=== PATIENT | female | born 1960 | race Two or more races ===

== ENCOUNTER 2025-05-24 12:15 | Inpatient (IN) | payer OTHER ==
[~2025-05-24] VITALS: Wt 60.3 kg
[2025-05-24] MEDS ORDERED: FOSAMAX70 MG PO (14:35)
[2025-05-24] MEDS ORDERED: ZESTRIL2.5 MG PO (14:35)
[2025-05-24] MEDS ORDERED: LIPITOR20 MG PO (14:36)
[2025-05-24] MEDS ORDERED: FERROUS SULFAT325 M2 PO (14:36)
[2025-05-24] MEDS ORDERED: VITAMIN D3 (14:37)
[2025-05-30] MEDS ORDERED: BUPIVACAINE HCL/MPF 0.5% 30ML VIAL ONE (07:07)
[2025-05-30] MEDS ORDERED: LIDOCAINE HCL 1%/EPINEPHRINE 20ML VIAL IJ ONE (07:08)
[2025-05-30] MEDS ORDERED: CEFTRIAXONE SODIUM 2,000 MG VIAL ONE (07:31)
[2025-05-30] MEDS ORDERED: METRONIDAZOLE/SODIUM CHLORIDE 500 MG/100 ML PIGGYBACK IV ONE (07:31)
[2025-05-30] MEDS ORDERED: DEXTROSE 50 % IN WATER 0.5 G/ML DISP.SYRIN IV PRN (09:30)
[2025-05-30] MEDS ORDERED: 0.9 % SODIUM CHLORIDE 1,000 ML IV SCH (09:30)
[2025-05-30] MEDS ORDERED: MORPHINE SULFATE 4 MG/ML CARTRIDGE IV PRN (09:30)
[2025-05-30] MEDS ORDERED: ONDANSETRON HCL 2 MG/ML VIAL IV PRN (09:30)
[2025-05-30] MEDS ORDERED: OxyCODONE HCL 5 MG TABLET (ROXICODONE) PO PRN (09:30)
[2025-05-30 11:42] LABS: BASO % 0.3 % (0.1-1.2); EOS # 0.16 (0.04-0.54); EOS % 1.1 % (0.7-7.0); LYMPH # 1.13 (1.18-3.74); LYMPH % 7.7 % (19.3-53.1); MEAN PLATELET VOLUME 10.20 fl (9.4-12.4); MONO # 0.83 (0.24-0.82); MONO % 5.6 % (4.7-12.5); NEUT # 12.51 (1.56-6.13); NEUT % 85.0 % (34.0-71.1); RED CELL DISTRIBUTION WIDTH 14.5 % (11.6-14.4)
[2025-05-30 12:04] LABS: BUN CREA RATIO 22.0 (7.0-25.0); CREATININE SERUM 0.46 mg/dL (0.55-1.02); GFR 136.33; GLUCOSE FASTING 149.0 mg/dL (65-100); OSMOLALITY SERUM 285.0 MOSM/KG (275-295)
[2025-05-30] MEDS ORDERED: ENALAPRILAT DIHYDRATE 1.25 MG/ML VIAL IV PRN (12:15)
[2025-05-30] MEDS ORDERED: HYOSCYAMINE SULFATE 0.125 MG TAB.SUBL SL SCH (13:00)
[2025-05-30] MEDS ORDERED: ACETAMINOPHEN 500 MG GEL..CAP PO SCH (14:00)
[2025-05-30 16:01] VITALS: BP 118/67; O2SAT 100
[2025-05-30] MEDS ORDERED: GABAPENTIN 300 MG CAPSULE PO SCH (17:00)
[2025-05-30] MEDS ORDERED: METRONIDAZOLE/SODIUM CHLORIDE 500 MG/100 ML PIGGYBACK IV SCH (17:00)
[2025-05-30] MEDS ORDERED: CELECOXIB 200 MG CAPSULE PO SCH (21:00)
[2025-05-30] MEDS ORDERED: FAMOTIDINE/PF 20 MG/2 ML VIAL IV PUSH SCH (21:00)
[2025-05-31 00:25] VITALS: BP 107/65; O2SAT 95
[2025-05-31 06:45] LABS: BASO % 0.1 % (0.1-1.2); EOS # 0.02 (0.04-0.54); EOS % 0.2 % (0.7-7.0); LYMPH # 1.22 (1.18-3.74); LYMPH % 11.2 % (19.3-53.1); MEAN PLATELET VOLUME 9.90 fl (9.4-12.4); MONO # 1.31 (0.24-0.82); MONO % 12.0 % (4.7-12.5); NEUT # 8.33 (1.56-6.13); NEUT % 76.3 % (34.0-71.1); RED CELL DISTRIBUTION WIDTH 14.1 % (11.6-14.4)
[2025-05-31 07:05] LABS: BUN CREA RATIO 16.0 (7.0-25.0); CREATININE SERUM 0.5 mg/dL (0.55-1.02); GFR 123.82; GLUCOSE FASTING 102.0 mg/dL (65-100); OSMOLALITY SERUM 278.0 MOSM/KG (275-295)
[2025-05-31 08:34] VITALS: BP 110/64; O2SAT 96
[2025-05-31] MEDS ORDERED: LISINOPRIL 2.5 MG TABLET PO SCH (09:00)
[2025-05-31 15:30] VITALS: BP 101/65; O2SAT 98
[2025-05-31] MEDS ORDERED: ATORVASTATIN CALCIUM 20 MG TABLET PO SCH (17:00)
[2025-05-31] MEDS ORDERED: ENOXAPARIN SODIUM 40 MG/0.4 ML SYRINGE SUBCUTANEO SCH (17:00)
[2025-06-01 01:28] VITALS: BP 118/76; O2SAT 97
[2025-06-01 06:30] LABS: BASO % 0.3 % (0.1-1.2); EOS # 0.16 (0.04-0.54); EOS % 1.5 % (0.7-7.0); LYMPH # 0.78 (1.18-3.74); LYMPH % 7.2 % (19.3-53.1); MEAN PLATELET VOLUME 10.50 fl (9.4-12.4); MONO # 0.77 (0.24-0.82); MONO % 7.1 % (4.7-12.5); NEUT # 9.00 (1.56-6.13); NEUT % 83.4 % (34.0-71.1); RED CELL DISTRIBUTION WIDTH 14.7 % (11.6-14.4)
[2025-06-01 07:06] LABS: BUN CREA RATIO 26.0 (7.0-25.0); CREATININE SERUM 0.42 mg/dL (0.55-1.02); GFR 151.42; GLUCOSE FASTING 99.0 mg/dL (65-100); OSMOLALITY SERUM 283.0 MOSM/KG (275-295)
[2025-06-01] MEDS ORDERED: ENOXAPARIN SODIUM 40 MG/0.4 ML SYRINGE SUBCUTANEO SCH (09:00)
[2025-06-01 09:09] VITALS: BP 135/74; O2SAT 97
[2025-06-01] MEDS ORDERED: POTASSIUM CHLORIDE 20MEQ/100ML H2O PB IV NR (10:15)
[2025-06-01 15:05] VITALS: BP 112/69; O2SAT 96
[2025-06-01] MEDS ORDERED: POTASSIUM PHOS,M-BASIC-D-BASIC 15 MM in 0.9 % SODIUM CHLORIDE 250 ML IV NR (17:00)
[2025-06-02 01:51] VITALS: BP 108/70; O2SAT 100
[2025-06-02 06:36] LABS: BASO % 0.5 % (0.1-1.2); EOS # 0.56 (0.04-0.54); EOS % 7.3 % (0.7-7.0); LYMPH # 1.34 (1.18-3.74); LYMPH % 17.5 % (19.3-53.1); MEAN PLATELET VOLUME 10.50 fl (9.4-12.4); MONO # 0.62 (0.24-0.82); MONO % 8.1 % (4.7-12.5); NEUT # 5.08 (1.56-6.13); NEUT % 66.5 % (34.0-71.1); RED CELL DISTRIBUTION WIDTH 14.6 % (11.6-14.4)
[2025-06-02 06:55] LABS: BUN CREA RATIO 27.0 (7.0-25.0); CREATININE SERUM 0.3 mg/dL (0.55-1.02); GFR 223.26; GLUCOSE FASTING 84.0 mg/dL (65-100); OSMOLALITY SERUM 284.0 MOSM/KG (275-295)
[2025-06-02 08:47] VITALS: BP 126/74; O2SAT 98
[2025-06-02] MEDS ORDERED: POTASSIUM PHOS,M-BASIC-D-BASIC 3 MM/ML VIAL IV NR (12:00)
[2025-06-02 16:00] VITALS: BP 125/58; O2SAT 95
[2025-06-03 00:37] VITALS: BP 138/75; O2SAT 99
[2025-06-03] MEDS ORDERED: PEPCID AC20 MG PO (07:47)
[2025-06-03] MEDS ORDERED: HYOSCYAMINE0.125 M1 SL (07:47)
[2025-06-03] MEDS ORDERED: DICY20TA PO (07:47)
[2025-06-03 08:32] VITALS: BP 138/84; O2SAT 98
== END 2025-06-03 13:44 | disposition home or self-care (01) | DRG 331 ==
LOC: O/R 05-30 11:00 → SURG 05-30 11:48
PROVIDERS: Internal Medicine Geriatric Medicine; ADMIT Surgery; ATTEND Surgery
PROC: 07BB4ZZ Excision of Mesenteric Lymphatic, Percutaneous Endoscopic Approach (ICD-10-PCS; 2025-05-30)
PROC: 0DTF4ZZ Resection of Right Large Intestine, Percutaneous Endoscopic Approach (ICD-10-PCS; principal; 2025-05-30 15:05)
DX: C18.3 Malignant neoplasm of hepatic flexure (principal); R19.4 Change in bowel habit; R14.0 Abdominal distension (gaseous); R59.0 Localized enlarged lymph nodes

== ENCOUNTER 2025-07-18 09:00 | Day surgery (SDC) | payer OTHER ==
[2025-07-12 11:13] LABS: URINE APPEARANCE Clear; URINE BILIRRUBIN Negative (NEGATIVE); URINE BLOOD Negative; URINE COLOR Yellow; URINE GLUCOSE Negative (NEGATIVE); URINE KETONE Negative (NEGATIVE); URINE LEUKOCYTE Small; URINE NITRATE Negative; URINE PROTEIN Negative (NEGATIVE); URINE UROBILINOGEN 0.2 E.U./dl
[2025-07-12 11:13] LABS: BASO % 0.6 % (0.1-1.2); EOS # 0.38 (0.04-0.54); EOS % 5.3 % (0.7-7.0); LYMPH # 1.83 (1.18-3.74); LYMPH % 25.3 % (19.3-53.1); MEAN PLATELET VOLUME 9.90 fl (9.4-12.4); MONO # 0.55 (0.24-0.82); MONO % 7.6 % (4.7-12.5); NEUT # 4.42 (1.56-6.13); NEUT % 61.1 % (34.0-71.1); RED CELL DISTRIBUTION WIDTH 14.6 % (11.6-14.4)
[2025-07-12 11:17] LABS: URINE BACTERIA 137.9 uL (0.0-1933); URINE EPITHELIAL CELLS 17.6 uL (0.0-38.8); URINE WBC 5.2 uL (0.0-23.2)
[2025-07-12 11:39] LABS: INR 0.97
[2025-07-12 11:44] LABS: ALT/SGPT 35.0 U/L (12-78); AST/SGOT 26.0 U/L (15-37); BILIRUBIN TOTAL 0.61 mg/dL (0.3-1.2); BUN CREA RATIO 31.0 (7.0-25.0); CREATININE SERUM 0.45 mg/dL (0.55-1.02); GFR 139.83; GLOBULINA 3.8 G/DL (2.4-3.5); GLUCOSE FASTING 89.0 mg/dL (65-100); OSMOLALITY SERUM 285.0 MOSM/KG (275-295)
[2025-07-12 11:56] LABS: URINE CAST 0.43 uL (0.0-1.40); URINE RBC 1.9 uL (0.0-20.8)
[~2025-07-18 09:00] MED LIST: DICY20TA PO; FERROUS SULFAT325 M2 PO; FOSAMAX70 MG PO; HYOSCYAMINE0.125 M1 SL; LIPITOR20 MG PO; PEPCID AC20 MG PO; VITAMIN D3; ZESTRIL2.5 MG PO
[2025-07-18] MEDS ORDERED: CEFTRIAXONE SODIUM 2,000 MG VIAL ONE (10:12)
[2025-07-18] MEDS ORDERED: METRONIDAZOLE/SODIUM CHLORIDE 500 MG/100 ML PIGGYBACK IV ONE (10:12)
[2025-07-18] MEDS ORDERED: CEFAZOLIN SODIUM 1,000 MG VIAL ONE (10:13)
[2025-07-18] MEDS ORDERED: BUPIVACAINE HCL/MPF 0.5% 30ML VIAL ONE (13:30)
[2025-07-18] MEDS ORDERED: HEPARIN SODIUM,PORCINE/PF 100 UNIT/ML SYRINGE IV ONE (13:31)
[2025-07-18] MEDS ORDERED: LIDOCAINE HCL 1% 20 ML VIAL IJ ONE (13:31)
[2025-07-18] MEDS ORDERED: TRAM1TAB98 PO (14:43)
== END 2025-07-18 18:45 | disposition home or self-care (01) ==
LOC: CIR.AMB 09:00
PROVIDERS: ATTEND Surgery
DX: C18.3 Malignant neoplasm of hepatic flexure (principal); C19 Malignant neoplasm of rectosigmoid junction
CPT/HCPCS: 36561; C1751